=== PATIENT | male | born 1985 | race Hispanic/Latino ===

== ENCOUNTER 2017-08-03 22:07 | Emergency (ER) | payer BC ==
--- NOTE | 2017-08-03 22:57 | RAD ---
SINGLE VIEW OF THE CHEST: Comparison: 10-02-16 History: Cough, congestion for two days. POS: [facility]
--- NOTE | 2017-08-04 07:51 | RAD ---
SINGLE VIEW OF THE CHEST: Comparison: 10-02-16 History: Cough, congestion for two days. FINDINGS: Single view of the chest shows a normal sized cardiomediastinal silhouette. There is no evidence of c onsolidation, mass, or pleural effusion. The bones are unremarkable. IMPRESSION: No evidence of acute cardiopulmonary disease. POS: [facility]
== END 2017-08-04 00:20 | disposition home or self-care (01) ==
LOC: ERS 22:07
DX: J40 Bronchitis, not specified as acute or chronic (principal)
CPT/HCPCS: 71045; 94640